=== PATIENT | female | born 1995 | race Caucasian/White ===

== ENCOUNTER 2020-03-22 16:08 | Emergency (ER) | payer OTHER, SELFPAY ==
[2020-03-22 17:58] VITALS: BP 101/55; PULSE 97; RESP 17; TEMP 36.7; O2SAT 96; BMI 31.6
--- NOTE | 2020-03-22 19:26 | ED_ITS ---
HPI - Extremity Problem General Chief complaint: Extremity Problem Stated complaint: hip pain Time Seen by Provider: 03/22/20 18:54 Source: patient Mode of arrival: ambulatory Limitations: no limitations History of Present Illness HPI Narrative: Otherwise healthy 25-year-old female who is currently 38 weeks gestation being followed by check inspector at [facility] presents today with 2 complaints 1. She reports that for the past 1 day she has had some pain in the left hip region primarily when she walks. She denies any fall or injury. No redness swelling or rash. There is no abdominal pain, related compla ints. States pain is alleviated when she rests but due to the advanced is hard for her to walk and she is having pain in the left hip. She denies any back pain or abdominal cramping. Additionally she also reports that she was with a roommate who had URI symptoms and she would like to get COVID tested. She denies any symptoms. No runny nose, congestion, shortness of breath chest pain. Radiation: none Context: other (No recent travel, immobilization, surgery, history of DVT, PVD, history gout or IVDA use.) Related Data Allergies Allergy/AdvReac Type Severity Reaction Status Date / Time amphetamine [From ADDERALL] Allergy Unknown UNKNOWN Verified 03/22/20 19:44 dextroamphetamine Allergy Unknown UNKNOWN Verified 03/22/20 19:44 [From ADDERALL] Review of Systems Review of Systems: Constitutional: No Weight loss, No Fever, No Chills, No Night Sweats, No Fatigue, No Malaise ENT/Mouth: No Hearing loss, No Ear Pain, No Nasal Congestion, No Sinus Pain, No Hoarseness, No sore throat, No Rhinorrhea, No Swallowing Difficulty Eyes: No Eye Pain, No Swelling, No Redness, No Foreign Body, No Discharge, No Vision Changes Cardiovascular: No Chest Pain, No SOB, No Dyspnea on Exertion, No Orthopnea, No Edema, No Palpitations Respiratory: No Cough, No Sputum, No Wheezing, No Smoke Exposure, No Dyspnea Gastrointestinal: No Nausea, No Vomiting, No Diarrhea, No Constipation, No abdominal Pain Genitourinary: no irregular bleeding, No Dysuria, No Urinary Frequency, No Hematuria, No Urinary Incontinence, No Urgency, No Flank Pain Musculoskeletal: No joint pain, No Myalgias, No Joint Swelling, as noted in HPI Skin: No Skin Lesions, No rash Neuro: No Weakness, No Numbness, No Paresthesias, No Loss of Consciousness, No Dizziness, No Headache Psych: No Social Issues Heme/Lymph: No Bruising, No Bleeding,No Lymphadenopathy Endocrine: No Polyuria, No Polydipsia, No Temperature Intolerance Yes all other systems are reviewed and are negative [facility] Past Medical History Medical History (Updated 03/22/20 @ 20:33 by Earl Carey NP) Anemia Asthma Cerebral palsy Social History Social History Advance Directives: No Advance Directives Information Provided: No Physical Exam Vital Signs: Vital Signs: Last Vital Signs Temp 98.1 F 03/22/20 17:58 Pulse 97 03/22/20 20:00 Resp 17 03/22/20 20:00 BP 112/70 03/22/20 20:00 Pulse Ox 96 03/22/20 20:00 Body Mass Index 31.6 Reviewed Const: General: cooperative and healthy appearing; No acute distress or intoxicated appearing Nutritional Appearance: average body habitus Orientation/consciousness: patient oriented x3 HENMT: Head: Yes normal to inspection Ears: hearing grossly normal bilaterally Eyes: General: appearance normal, both eyes and all related structures Visual Moran: normal visual moran by confrontation Neck: Neck: Yes normal visual inspection and No tender Thyroid: Thyroid normal Chest: Chest palpation & inspection: normal inspection of the chest Resp: Effort & Inspection: normal respiratory effort Auscultation: clear to auscultation bilaterally Cardio: Jugular venous distension: no JVD Rhythm: regular rhythm Heart sounds: S1 normal heart sound present and S2 normal heart sound present GI: Other: Gravid him Inspection: Yes normal to inspection Palpation (GI): Soft to palpation Percussion: Yes normal to percussion Auscultation: normal bowel sounds : General: Yes no CVA tenderness Back/Spine/Pelvis: Back: no CVA tenderness Skin: General skin exam: no rashes or lesions noted Neuro: General: patient oriented x3 Extrem: Other: Able to ambulate with steady gait able to get out of bed by herself. General: Yes normal to inspection Right lower extremity: normal to inspection, full ROM and normal capillary refill Left lower extremity: normal to inspection, full ROM and normal capillary refill Course Course Course Narrative: Pain likely ligament taken from advanced . No GI, symptoms. No recent injury. No fever. heart rate within normal limits. Her positive movements regularly. No contractions here. As it relates to her COVID test she would like to get COVID test given that she was exposed to a friend with URI symptoms she denies any symptoms. STAT COVID/RSV/flu swab was done and patient requests to be discharged and call with results. Clear cdc/state guidance provided. Stable for discharge. Discharge Plan Discharge Clinical Impression: Encounter for preoperative screening laboratory testing for COVID-19 virus, Pain of round ligament Patient Disposition: Home, Self-Care Instructions: Musculoskeletal Pain (ED) Additional Instructions: We will call you with the COVID test results in the next 1 hour Rest, gentle stretching Tylenol for discomfort Return if any abdominal pain or cramping or vaginal bleeding or discharge or any other concerns. Otherwise follow-up with her OB to graduate studies dean team on Tuesday as planned Thank you Referrals: ED Physician,Generic [Emergency Provider] - 2 days (See your OBGYN team on Tuesday)
[2020-03-22] MEDS: Acetaminophen 325 MG TABLET 650 MG PO (19:45)
[2020-03-22 20:00] VITALS: BP 112/70; PULSE 97; RESP 17; O2SAT 96
[2020-03-22 20:54] LABS: Influenza A PCR NEGATIVE (Negative); Influenza B PCR NEGATIVE (Negative); Resp Syncy Virus RNA Qual PCR NEGATIVE (Negative); SARS COV2 PCR INHOUSE NEGATIVE (Negative)
--- NOTE | 2020-03-22 21:56 | PC.NURSE ---
COVID RESULTS NEGATIVE. CALLED TO PATIENT.
== END 2020-03-22 20:39 | disposition home or self-care (01) ==
PROVIDERS: Nurse Practitioner Primary Care; Emergency Provider Emergency Medicine
DX: O99.891 Other specified diseases and conditions complicating pregnancy (principal); R10.2 Pelvic and perineal pain; Z3A.38 38 weeks gestation of pregnancy; Z20.828 Contact with and (suspected) exposure to other viral communicable diseases
CPT/HCPCS: 0241U; 99284

== ENCOUNTER 2020-09-12 11:25 | Emergency (ER) | payer OTHER, SELFPAY ==
[2020-09-12 12:08] VITALS: BP 115/58; PULSE 96; RESP 16; TEMP 36.4; O2SAT 97; BMI 33.2
[2020-09-12] MEDS: cephALEXin 500 MG CAPSULE PO (13:38)
[2020-09-12] MEDS: Ibuprofen 600 MG TABLET PO (13:38)
[2020-09-12] MEDS: Lidocaine HCl 1 % MPF 5 ML VIAL SUBCUT (13:38)
[2020-09-12] MEDS: oxyCODONE HCl Immed Release 5 MG TABLET PO (13:38)
--- NOTE | 2020-09-12 14:30 | ED.SKABFB ---
HPI - Skin/Abscess/Foreign Bdy General Chief complaint: Back Pain/Injury Stated complaint: abscess Time Seen by Provider: 09/12/20 13:14 Source: patient Mode of arrival: ambulatory Limitations: no limitations History of Present Illness complaint: abscess/boil Onset (ago): day(s) (A few days worse today) Location: buttocks (Pilonidal) Severity: severe Severity scale (1-10): >10 Quality: aching Pain Consistency: constant Relieving factors: none Exacerbating factors: palpation, movement and other (Sitting or lying down) Context: none Associated symptoms: denies other symptoms Treatments prior to arrival: none Related Data Previous Rx's Medication Instructions Recorded acetaminophen [Tylenol Extra 1,000 mg PO QID PRN #14 tab 09/12/20 Strength] doxycycline hyclate 100 mg PO BID 10 Days #20 cap 09/12/20 ibuprofen 800 mg PO Q8H PRN #14 tab 09/12/20 oxycodone 5 mg PO BID PRN #10 tab 09/12/20 Allergies Allergy/AdvReac Type Severity Reaction Status Date / Time amphetamine [From ADDERALL] Allergy Unknown UNKNOWN Verified 03/22/20 19:44 dextroamphetamine Allergy Unknown UNKNOWN Verified 03/22/20 19:44 [From ADDERALL] Review of Systems Review of Systems: Constitutional : No Fever, No Chills, Cardiovascular : No Chest Pain, No SOB Respiratory : No Dyspnea Gastrointestinal : No abdominal pain Musculoskeletal : No Joint Swelling Skin : positive abscess, no skin laceration, No Foreign bodies, No rash, No surrounding erythema Neuro : No Weakness, No Numbness/tingling Psych : No SI/HI/thoughts of self injury Yes all other systems are reviewed and are negative [facility] Past Medical History Attestation statement: The following information was validated with the patient. Medical History Anemia Asthma Cerebral palsy Social History Social History Advance Directives: No Advance Directives Information Provided: No Patient : No Physical Exam Vital Signs: Vital Signs: Last Vital Signs Temp 97.5 F 09/12/20 12:08 Pulse 96 09/12/20 12:08 Resp 16 09/12/20 12:08 BP 115/58 L 09/12/20 12:08 Pulse Ox 97 09/12/20 12:08 Body Mass Index 33.2 vital signs have been reviewed as normal and appeared to be correct. Blood pressure normal. Heart rate normal. Respiration rate normal. Temperature normal. Oxygen saturation normal. Appearance: Alert. Oriented X3. No acute distress. Head: Normal external exam. Normocephalic. Atraumatic. Eyes: PERRLA. EOMI. Conjunctiva and sclera normal. Eyelids normal. ENT: Pharynx normal. Uvula midline. Moist mucous membranes. Neck: Normal inspection. Neck supple. FROM. No adenopathy. No meningeal signs. No neck mass noted. CVS: Normal heart rate and rhythm. Heart sound normal. Pulses normal throughout. No murmurs/rales/gallops. Respiratory: No respiratory distress. Painless inspiration. Breath sounds normal. No wheezes/rales/rhonchi noted. Chest nontender. No accessory muscle usage noted or decreased air movement noted. Back: Full range of motion noted. No rashes/lesion/induration/fluctuance or signs of infection noted. Skin: Pilonidal abscess noted. No surrounding erythema/streaking noted. No drainage noted at this time. Skin warm and dry. Normal skin color. Normal skin turgor. No rashes/lesions/lacerations noted. Extremities: Extremities exhibit normal range of motion. Extremities nontender. Neuro: Oriented X 3. No motor deficit. No sensory deficit. Reflexes normal. Normal steady gait. No focal neuro deficits noted. Course Course Course Narrative: Patient is now status post I&D of pilonidal abscess and moderate purulent drainage was excreted. I did offer to pack the wound although patient adamantly refused. She reports that she was refuses and she gets this done every year. Therefore explained to her it is very important that she takes antibiotics and followed back up with either us or General surgery and to follow up with primary care provider as well. Will DC home with symptomatic treatment and referral to General surgery. Patient understands agrees this plan. Procedures Abscess I/D Site: other (Pilonidal) Side (if applicable): left Local Anesthetic: lidocaine 1% Amount of anesthesia used (mL): 4 Technique: needle aspiration and incised with blade Amount of fluid expressed (mL): 5 Sent for culture/gram staining?: No Irrigation: Yes Packing used?: none Complications: other (No complications) Discharge Plan Discharge Clinical Impression: Pilonidal abscess Patient Disposition: Home, Self-Care Instructions: Pilonidal Cyst (ED) Prescriptions: New doxycycline hyclate 100 mg capsule 100 mg PO BID 10 Days Qty: 20 RF: 0 ibuprofen 800 mg tablet 800 mg PO Q8H PRN (Reason: pain) Qty: 14 RF: 0 acetaminophen [Tylenol Extra Strength] 500 mg tablet 1,000 mg PO QID PRN (Reason: fever or pain) Qty: 14 RF: 0 oxycodone 5 mg tablet 5 mg PO BID PRN (Reason: pain) Qty: 10 RF: 0 Referrals: Ryan Escobar MD [Physician] - 2 days (Pilonidal abscess) Stand Alone Forms: Work/School Release Print Language: Bengali
[2020-09-12 14:41] VITALS: RESP 17
== END 2020-09-12 14:51 | disposition home or self-care (01) ==
PROVIDERS: Emergency Provider Emergency Medicine
DX: L05.01 Pilonidal cyst with abscess (principal); G80.9 Cerebral palsy, unspecified
CPT/HCPCS: 10080; 99284

== ENCOUNTER 2020-09-16 20:17 | Emergency (ER) | payer OTHER, SELFPAY ==
[2020-09-16 21:02] VITALS: BP 93/59; PULSE 110; RESP 24; TEMP 36.6; O2SAT 100; BMI 31.7
--- NOTE | 2020-09-16 21:49 | ED_ITS ---
HPI - Skin/Abscess/Foreign Bdy General Chief complaint: Skin/Abscess/Foreign Body Stated complaint: cyst? Time Seen by Provider: 09/16/20 21:35 Source: patient Mode of arrival: ambulatory History of Present Illness HPI narrative: 25-year-old female who presents with worsening folliculitis at groin labial intersection without associated fevers, chills that she has been unable to encourage drainage from. Related Data Previous Rx's Medication Instructions Recorded acetaminophen [Tylenol Extra 1,000 mg PO QID PRN #14 tab 09/12/20 Strength] doxycycline hyclate 100 mg PO BID 10 Days #20 cap 09/12/20 ibuprofen 800 mg PO Q8H PRN #14 tab 09/12/20 oxycodone 5 mg PO BID PRN #10 tab 09/12/20 oxycodone 5 mg PO BID PRN #10 tab 09/12/20 amoxicillin-pot clavulanate 1 tab PO Q12H 5 Days #10 tab 09/16/20 [Augmentin] Allergies Allergy/AdvReac Type Severity Reaction Status Date / Time amphetamine [From ADDERALL] Allergy Unknown UNKNOWN Verified 03/22/20 19:44 dextroamphetamine Allergy Unknown UNKNOWN Verified 03/22/20 19:44 [From ADDERALL] Review of Systems Review of Systems: Pertinent positives and negatives as per HPI and 10pt ROS negative PMFSH Past Medical History Source: nursing notes reviewed Medical History Anemia Asthma Cerebral palsy Social History Social History Advance Directives: No Advance Directives Information Provided: Yes Patient : No Physical Exam Vital Signs: Vital Signs: Last Vital Signs Temp 97.8 F 09/16/20 21:02 Pulse 110 H 09/16/20 21:02 Resp 24 H 09/16/20 21:02 BP 93/59 L 09/16/20 21:02 Pulse Ox 100 09/16/20 21:02 Body Mass Index 31.7 VITAL SIGNS: Reviewed. GENERAL: Well developed, well nourished, in no acute distress. HEAD: Normocephalic/atraumatic EYES: PERRLA, EOMI OROPHARYNX: no oral lesions noted, posterior pharynx clear LUNGS: Normal breath sounds. No adventitious sounds or accessory muscle use. SpO2<100> CARDIOVASCULAR: Regular rate and rhythm without noted murmurs ABDOMEN: Soft, non-tender, non-distended with bowel sounds. GROIN: Folliculitis with surrounding cellulitis that is draining at the right groin/thigh crease Course Course Course Narrative: 25-year-old female with history and clinical presentation consistent with folliculitis and surrounding cellulitis and some noted drainage. Patient not tolerating exam further and on preparation for infiltration of local anesthetic and further evaluation patient made the decision that she does not want to proceed any further with the procedure and she understands that this could spread and become a more serious condition but wants to go home and do warm moist compresses and take the antibiotics. She received initial dose here in the emergency room. Discharge Plan Discharge Clinical Impression: Abscess, Cellulitis, Folliculitis Patient Disposition: Home, Self-Care Instructions: Cellulitis (ED), Folliculitis (ED), Abscess (ED), Warm Compress or Soak (ED) Additional Instructions: 1. Resume all home medications as prescribed. 2. Follow-up with your primary care provider in the next 2-3 days for re- evaluation. Return to the ER for acute worsening of symptoms. Prescriptions: New amoxicillin-pot clavulanate [Augmentin] 875-125 mg tablet 1 tab PO Q12H 5 Days Qty: 10 RF: 0 No Action doxycycline hyclate 100 mg capsule 100 mg PO BID 10 Days Qty: 20 RF: 0 ibuprofen 800 mg tablet 800 mg PO Q8H PRN (Reason: pain) Qty: 14 RF: 0 acetaminophen [Tylenol Extra Strength] 500 mg tablet 1,000 mg PO QID PRN (Reason: fever or pain) Qty: 14 RF: 0 oxycodone 5 mg tablet 5 mg PO BID PRN (Reason: pain) Qty: 10 RF: 0 oxycodone 5 mg tablet 5 mg PO BID PRN (Reason: pain) Qty: 10 RF: 0 Referrals: Physician,None [Primary Care Provider] - 2 days
[2020-09-16] MEDS: Amoxicillin/Potassium Clav 875 MG TABLET PO (23:15)
== END 2020-09-16 23:27 | disposition home or self-care (01) ==
PROVIDERS: Emergency Provider Student in an Organized Health Care Education/Training Program
DX: L03.314 Cellulitis of groin (principal); L02.214 Cutaneous abscess of groin; L73.9 Follicular disorder, unspecified
CPT/HCPCS: 99283